=== PATIENT | female | born 1995 | race Caucasian/White ===

== ENCOUNTER 2016-09-03 20:11 | Emergency (ER) | payer MEDICAID ==
[2016-09-03 20:33] VITALS: BP 129/84
--- NOTE | 2016-09-03 20:53 | EDM.PDOC ---
ED HPI GENERAL MEDICAL PROBLEM - General Chief Complaint: General Stated Complaint: CHEST PAINS Time Seen by Provider: 09/03/16 20:40 Source of Information: Reports: Patient History Limitations: Reports: No limitations - History of Present Illness INITIAL COMMENTS - FREE TEXT/NARRATIVE: This patient complains of chest pain that started last night. She said the pain is mostly at the area over the sternomanubrial joint. She says it hurts to move her arms and shoulders and hurts to take a deep deep breath or to any other kind of movement involving the chest. If she does lays still in bed it feels just fine. She denies any kind of trauma. Chest Pain Score (Numeric/FACES): 7 - Related Data Allergies Allergy/AdvReac Type Severity Reaction Status Date / Time No Known Allergies Allergy Verified 09/03/16 20:33 Home Meds: Home Meds Chrom Marialuisa/Brindal Zheng [Garcinia Cambogia Tablet] 1 tab PO DAILY 09/03/16 [ History] Past Medical History Other Neuro History: hx of trigeminal neuralgia Psychiatric History: Reports: ADHD, Anxiety - Past Surgical History Other HEENT Surgeries/Procedures: [place] teeth removed 10/02/2014, hematoma, infection to right jaw. Social & Family History - Tobacco Use Smoking Status *Q: Heavy Tobacco Smoker Years of Tobacco use: 6 Packs/Tins Daily: 1 - Recreational Drug Use Recreational Drug Use: No ED ROS GENERAL - Review of Systems Review Of Systems: ROS reveals no pertinent complaints other than HPI. ED EXAM, GENERAL - Physical Exam Exam: See Below Exam Limited By: No limitations General Appearance: alert, WD/WN, mild distress Eye Exam: bilateral eye: normal inspection Throat/Mouth: Other (There is a ring through her lower lip on the right) Respiratory/Chest: lungs clear, normal breath sounds, other (There is exquisite tenderness to the sternal manubrial joint. The rest of the chest wall is nontender). No: chest non-tender Cardiovascular: normal peripheral pulses, regular rate, rhythm, no murmur Course - Vital Signs Last Recorded V/S: Last Vital Signs Temp 37.6 C 09/03/16 20:30 Pulse 92 09/03/16 20:30 Resp 16 09/03/16 20:30 BP 129/84 09/03/16 20:30 Pulse Ox 98 09/03/16 20:30 Departure - Departure Time of Disposition: 20:51 Disposition: Home, Self-Care 01 Condition: fair Clinical Impression: Sternal pain Forms: ED Department Discharge Additional Instructions: The area that is hurting so much is a joint between the sternum or breastbone and a bone right above it: Manubrium. The joint is called the sternal manubrial joint. These joints can get inflamed for no apparent reason. For relief try taking the ibuprofen 600 mg 3 times a day. You can take Tylenol along with this. Also take prednisone 10 mg 2 tablets daily for [address] if you're not better in 4 or 5 days
== END 2016-09-03 21:10 | disposition home or self-care (01) ==
LOC: JP.ED 20:11
DX: R07.89 Other chest pain (principal); F17.210 Nicotine dependence, cigarettes, uncomplicated; Z79.899 Other long term (current) drug therapy
CPT/HCPCS: 99285

== ENCOUNTER 2017-01-31 18:21 | Emergency (ER) | payer MEDICAID ==
[2017-01-31 18:44] VITALS: BP 116/74
--- NOTE | 2017-01-31 19:04 | EDM.PDOC ---
ED HPI GENERAL MEDICAL PROBLEM - General Chief Complaint: General Stated Complaint: HEARTBEAT DOESN'T FEEL RIGHT Time Seen by Provider: 01/31/17 18:51 Source of Information: Reports: Patient, Family, RN Notes Reviewed History Limitations: Reports: No Limitations - History of Present Illness INITIAL COMMENTS - FREE TEXT/NARRATIVE: 21-year-old female presents emergency department day complaint of palpitations, she states it's gotten worse over the last couple weeks she is under a lot of stress she does use both caffeine and tobacco products - Related Data Allergies Allergy/AdvReac Type Severity Reaction Status Date / Time No Known Allergies Allergy Verified 09/03/16 20:33 Home Meds: Home Meds NK [No Known Home Meds] 01/31/17 [History] Past Medical History Other Neuro History: hx of trigeminal neuralgia Psychiatric History: Reports: ADHD, Anxiety - Past Surgical History Other HEENT Surgeries/Procedures: [place] teeth removed 10/02/2014, hematoma, infection to right jaw. Social & Family History - Tobacco Use Smoking Status *Q: Current Every Day Smoker Years of Tobacco use: 8 Packs/Tins Daily: 1.5 - Recreational Drug Use Recreational Drug Use: No ED ROS GENERAL - Review of Systems Review Of Systems: See Below Constitutional: Reports: No Symptoms Respiratory: Reports: No Symptoms Cardiovascular: Reports: Palpitations GI/Abdominal: Reports: No Symptoms : Reports: No Symptoms ED EXAM, GENERAL - Physical Exam Exam: See Below Exam Limited By: No Limitations General Appearance: Alert, WD/WN, No Apparent Distress Respiratory/Chest: No Respiratory Distress, Lungs Clear, Normal Breath Sounds, No Accessory Muscle Use Cardiovascular: Regular Rate, Rhythm, No Murmur Course - Vital Signs Last Recorded V/S: Last Vital Signs Temp 97.0 F 01/31/17 18:43 Pulse 88 01/31/17 18:43 Resp 14 01/31/17 18:43 BP 116/74 01/31/17 18:43 Pulse Ox 97 01/31/17 18:43 - Orders/Labs/Meds Orders: Active Orders 24 hr Category Date Time Status EKG Documentation Completion [RC] ASDIRECTED Care 01/31/17 19:02 Active EKG 12 Lead [EK] Stat Ther 01/31/17 19:01 Ordered Labs: Laboratory Tests 01/31/17 01/31/17 Range/Units 19:12 19:12 WBC 12.1 H (4.5-11.0) K/uL RBC 4.78 (3.30-5.50) M/uL Hgb 13.5 (12.0-15.0) g/dL Hct 39.6 (36.0-48.0) % MCV 83 (80-98) fL MCH 28 (27-31) pg MCHC 34 (32-36) % Plt Count 243 (150-400) K/uL Neut % (Auto) 64 (36-66) % Lymph % (Auto) 28 (24-44) % [place] % (Auto) 5 (2-6) % Eos % (Auto) 2 (2-4) % Baso % (Auto) 1 (0-1) % Sodium 138 L (140-148) mmol/L Potassium 3.8 (3.6-5.2) mmol/L Chloride 105 (100-108) mmol/L Carbon Dioxide 27 (21-32) mmol/L Anion Gap 9.8 (5.0-14.0) mmol/L BUN 10 (7-18) mg/dL Creatinine 0.6 (0.6-1.0) mg/dL Est Cr Clr Drug Dosing 120.63 mL/min Estimated GFR (MDRD) > 60 (>60) Glucose 120 H (74-106) mg/dL Calcium 9.0 (8.5-10.1) mg/dL Departure - Departure Time of Disposition: 19:57 Disposition: Home, Self-Care 01 Condition: Good Clinical Impression: Premature ventricular contractions - Discharge Information Forms: ED Department Discharge Additional Instructions: Try the propranolol as needed up to 3 times a day, Please followup with your primary care provider in 3-5 days if not better, please call return to the emergency department with worsening of symptoms. - My Orders Last 24 Hours: My Active Orders 01/31/17 19:01 EKG 12 Lead [EK] Stat 01/31/17 19:02 EKG Documentation Completion [RC] ASDIRECTED - Assessment/Plan Last 24 Hours: My Active Orders 01/31/17 19:01 EKG 12 Lead [EK] Stat 01/31/17 19:02 EKG Documentation Completion [RC] ASDIRECTED Plan: Assessment Acuity = acute Site and laterality = multiple PVCs Etiology = probably secondary to combination of heavy tobacco use, caffeine and stress Manifestations = none Location of injury = Home Lab values = CBC, CMP within normal limits EKG shows no acute process Plan I did review lab work and EKG results with her recommended decreasing tobacco use also given try medication of propranolol 10 mg by mouth 3 times a day, when necessary, have her follow-up with her primary care in 3-5 days for reevaluation Patient was in agreement with the plan all questions were answered, they were instructed to return to the emergency department or call for worsening symptoms. This note was dictated using [employer] voice recognition software please call with any questions.
== END 2017-01-31 20:08 | disposition home or self-care (01) ==
LOC: JP.ED 18:21
DX: I49.3 Ventricular premature depolarization (principal); F41.9 Anxiety disorder, unspecified; F17.210 Nicotine dependence, cigarettes, uncomplicated
CPT/HCPCS: 36415; 80048; 85025; 93005; 99285-25

== ENCOUNTER 2017-09-19 22:02 | Emergency (ER) | payer MEDICAID ==
[2017-09-19 23:09] VITALS: BP 152/91
--- NOTE | 2017-09-20 00:06 | EDM.PDOC ---
ED HPI GENERAL MEDICAL PROBLEM - General Chief Complaint: Abdominal Pain Stated Complaint: abd pain Time Seen by Provider: 09/20/17 00:05 Source of Information: Reports: Patient History Limitations: Reports: No Limitations - History of Present Illness INITIAL COMMENTS - FREE TEXT/NARRATIVE: pt arrived with pain in the rt lower and upper abdoman. She has felt nauseated but she has not vomited. She has been having normal stools. Onset: Today, Gradual Duration: Hour(s): Location: Reports: Abdomen Associated Symptoms: Reports: Nausea/Vomiting upper bilat abd Pain Score (Numeric/FACES): 7 - Related Data Allergies Allergy/AdvReac Type Severity Reaction Status Date / Time No Known Allergies Allergy Verified 09/19/17 23:10 Home Meds: Home Meds NK [No Known Home Meds] 01/31/17 [History] Past Medical History Genitourinary History: Reports: Pyelonephritis Other Neuro History: hx of trigeminal neuralgia Psychiatric History: Reports: ADHD, Anxiety Endocrine/Metabolic History: Reports: Obesity/BMI 30+ - Past Surgical History Other HEENT Surgeries/Procedures: [place] teeth removed 10/02/2014, hematoma, infection to right jaw. Social & Family History - Tobacco Use Smoking Status *Q: Current Every Day Smoker Years of Tobacco use: 8 Packs/Tins Daily: 1 - Caffeine Use Caffeine Use: Reports: Soda - Recreational Drug Use Recreational Drug Use: No ED ROS GENERAL - Review of Systems Review Of Systems: See Below Constitutional: Reports: No Symptoms HEENT: Reports: No Symptoms Respiratory: Reports: No Symptoms Cardiovascular: Reports: No Symptoms Endocrine: Reports: No Symptoms GI/Abdominal: Reports: Abdominal Pain, Other (pt has pain in the rt lower and rt upper abdoman. She has felt nauseated but has not vomited. She has not had a fever. ) : Reports: No Symptoms Musculoskeletal: Reports: No Symptoms Skin: Reports: No Symptoms ED EXAM, GI/ABD - Physical Exam Exam: See Below Text/Narrative:: pt arrived with pain in the rt upper abdomanand the rt lower abdoman. She has been mainly uncomfortable when she is up moving about. Exam Limited By: No Limitations General Appearance: Alert, Anxious, Mild Distress Eyes: Bilateral: Normal Appearance, EOMI Ears: Normal TMs Nose: Normal Inspection Throat/Mouth: Normal Inspection Head: Atraumatic Neck: Normal Inspection Respiratory/Chest: No Respiratory Distress Cardiovascular: Regular Rate, Rhythm GI/Abdominal Exam: Other (pt has definite tenderness in the rt mid and rt lower abdoman. ) (Female) Exam: Deferred Rectal (Female) Exam: Deferred Back Exam: Normal Inspection Extremities: Normal Inspection Neurological: Alert, Oriented, Normal Cognition Psychiatric: Normal Affect Course - Vital Signs Last Recorded V/S: Last Vital Signs Temp 37.1 C 09/19/17 23:15 Pulse 93 09/19/17 23:15 Resp 18 09/19/17 23:15 BP 152/91 H 09/19/17 23:15 Pulse Ox 98 09/19/17 23:15 - Orders/Labs/Meds Labs: Laboratory Tests 09/20/17 09/20/17 09/20/17 Range/Units 00:10 00:10 00:10 WBC 14.8 H (4.5-11.0) K/uL RBC 4.78 (3.30-5.50) M/uL Hgb 13.4 (12.0-15.0) g/dL Hct 39.6 (36.0-48.0) % MCV 83 (80-98) fL MCH 28 (27-31) pg MCHC 34 (32-36) % Plt Count 266 (150-400) K/uL Neut % (Auto) 64 (36-66) % Lymph % (Auto) 27 (24-44) % [place] % (Auto) 6 (2-6) % Eos % (Auto) 2 (2-4) % Baso % (Auto) 0 (0-1) % Sodium 141 (140-148) mmol/L Potassium 4.1 (3.6-5.2) mmol/L Chloride 106 (100-108) mmol/L Carbon Dioxide 25 (21-32) mmol/L Anion Gap 10.0 (5.0-14.0) mmol/L BUN 8 (7-18) mg/dL Creatinine 0.6 (0.6-1.0) mg/dL Est Cr Clr Drug Dosing 103.85 mL/min Estimated GFR (MDRD) > 60 (>60) Glucose 91 (74-106) mg/dL Calcium 8.7 (8.5-10.1) mg/dL Total Bilirubin 0.2 (0.2-1.0) mg/dL AST 19 (15-37) U/L ALT 28 (12-78) U/L Alkaline Phosphatase 101 (46-116) U/L C-Reactive Protein 0.18 (0.0-0.3) mg/dL Total Protein 6.9 (6.4-8.2) g/dL Albumin 3.5 (3.4-5.0) g/dL Globulin 3.4 (2.3-3.5) g/dL Albumin/Globulin Ratio 1.0 L (1.2-2.2) Urine Color Urine Appearance Urine pH (4.5-8.0) Ur Specific [place] (1.008-1.030) Urine Protein (NEGATIVE) mg/dL Urine Glucose (UA) (NEGATIVE) mg/dL Urine Ketones (NEGATIVE) mg/dL Urine Occult Blood (NEGATIVE) Urine Nitrite (NEGATIVE) Urine Bilirubin (NEGATIVE) Urine Urobilinogen (NORMAL) mg/dL Ur Leukocyte Esterase (NEGATIVE) Urine RBC (0-5) Urine WBC (0-5) Ur Epithelial Cells Amorphous Sediment Urine Bacteria Urine Mucus Urine HCG, Qual 09/20/17 09/20/17 Range/Units 00:20 00:20 WBC (4.5-11.0) K/uL RBC (3.30-5.50) M/uL Hgb (12.0-15.0) g/dL Hct (36.0-48.0) % MCV (80-98) fL MCH (27-31) pg MCHC (32-36) % Plt Count (150-400) K/uL Neut % (Auto) (36-66) % Lymph % (Auto) (24-44) % [place] % (Auto) (2-6) % Eos % (Auto) (2-4) % Baso % (Auto) (0-1) % Sodium (140-148) mmol/L Potassium (3.6-5.2) mmol/L Chloride (100-108) mmol/L Carbon Dioxide (21-32) mmol/L Anion Gap (5.0-14.0) mmol/L BUN (7-18) mg/dL Creatinine (0.6-1.0) mg/dL Est Cr Clr Drug Dosing mL/min Estimated GFR (MDRD) (>60) Glucose (74-106) mg/dL Calcium (8.5-10.1) mg/dL Total Bilirubin (0.2-1.0) mg/dL AST (15-37) U/L ALT (12-78) U/L Alkaline Phosphatase (46-116) U/L C-Reactive Protein (0.0-0.3) mg/dL Total Protein (6.4-8.2) g/dL Albumin (3.4-5.0) g/dL Globulin (2.3-3.5) g/dL Albumin/Globulin Ratio (1.2-2.2) Urine Color Yellow Urine Appearance Clear Urine pH 6.5 (4.5-8.0) Ur Specific [place] 1.015 (1.008-1.030) Urine Protein Negative (NEGATIVE) mg/dL Urine Glucose (UA) Normal (NEGATIVE) mg/dL Urine Ketones Negative (NEGATIVE) mg/dL Urine Occult Blood Negative (NEGATIVE) Urine Nitrite Negative (NEGATIVE) Urine Bilirubin Negative (NEGATIVE) Urine Urobilinogen 1 (NORMAL) mg/dL Ur Leukocyte Esterase Negative (NEGATIVE) Urine RBC 0-5 (0-5) Urine WBC 0-5 (0-5) Ur Epithelial Cells Few Amorphous Sediment Not seen Urine Bacteria Few Urine Mucus Not seen Urine HCG, Qual Negative Meds: Medications Discontinued Medications Generic Name Dose Route Start Last Admin Trade Name Freq PRN Reason Stop Dose Admin Sodium Chloride 80 mls @ 3.5 mls/sec 09/20/17 00:58 09/20/17 01:31 Normal Saline IV 09/20/17 00:59 3.5 mls/sec ASDIRECTED STA Administration Iopamidol 136 ml 09/20/17 00:57 09/20/17 01:31 Isovue-300 (61%) IV 09/20/17 00:58 150 ml . DIRECTED STA Administration Magnesium Citrate 296 ml 09/20/17 02:00 09/20/17 02:10 Citrate Of Magnesia PO 09/20/17 02:01 296 ml ONETIME ONE Administration - Re-Assessments/Exams Free Text/Narrative Re-Assessment/Exam: 09/20/17 02:16 wbc was mildly elevated. She had a crp which was not markedly elevated. She had a cat scan of the abdoman which revealed retained stool in the rt colon, a ruptured rt ovarian cyst. and some adenitis. Departure - Departure Time of Disposition: 02:11 Disposition: Home, Self-Care 01 Condition: Fair Clinical Impression: Ruptured ovarian cyst, Adenitis, Constipation - Discharge Information Instructions: Constipation, Adult, [id number], Ovarian Cyst, [id number] Referrals: Alyssa Cali NP [Primary Care Provider] - Forms: ED Department Discharge Care Plan Goals: push fluids, high fiber diet, drink the mag citrate after she gets home , Motrin 600mg q4h prn for pain.
[2017-09-20] MEDS ORDERED: Iopamidol 612 MG/ML 150 ML Bottle IV STA (00:57)
[2017-09-20] MEDS ORDERED: Sodium Chloride 0.9% 80 ML IV STA (00:58)
[2017-09-20] MEDS ORDERED: Magnesium Citrate Solution 296 ML Bottle PO ONE (02:00)
== END 2017-09-20 02:19 | disposition home or self-care (01) ==
LOC: JP.ED 22:02
DX: N83.201 Unspecified ovarian cyst, right side (principal); K59.00 Constipation, unspecified; I88.9 Nonspecific lymphadenitis, unspecified; E66.9 Obesity, unspecified; F17.210 Nicotine dependence, cigarettes, uncomplicated
CPT/HCPCS: 36415; 74177; 80053; 81001; 81025; 85025; 86140; 99284; A9270; J7030